=== PATIENT | female | born 1940 | race Caucasian/White ===

== ENCOUNTER 2016-12-15 06:33 | Day surgery (SDC) | payer OTHER ==
[2016-12-08 11:08] LABS: HEMATOCRIT 38.7 % (36.0-48.0); HEMOGLOBIN 12.8 g/dL (12.0-16.0)
[2016-12-08 11:21] LABS: BUN (BLOOD UREA NITROGEN) 22 MG/DL (6-23); CALCIUM, SERUM 9.6 MG/DL (8.5-10.4); CHLORIDE, SERUM 105 MMOL/L (96-112); CO2 (CARBON DIOXIDE) 26 MMOL/L (24-34); CREATININE 1.51 MG/DL (0.55-1.02); GFR AFRICAN AMERICAN 39 ML/MIN (>=60); GFR NON AFRICAN AMERICAN 33 ML/MIN (>=60); GLUCOSE, SERUM 93 MG/DL (60-99); SODIUM, SERUM 141 MMOL/L (135-148)
--- NOTE | ~2016-12-15 | OP ---
Record Of Operation [facility] [address] [place]. [address] NAME: CHRISTY VERDE : 42 STATUS : REG [facility]#: [id number] AGE: 76 ADM/REG DATE : 12/15/16 MR#: [id number] REPORT SERV DATE: 12/15/16 DICTATED BY: STEPHANIE MCCALLUM DATE: 12/15/16 REPORT STATUS : Draft TRANSCRIBED BY: MODL DATE: 12/15/16 DATE OF PROCEDURE: 12/15/2016 PREOPERATIVE DIAGNOSES: 1. Right UPJ obstruction. 2. Chronic kidney disease. Baseline creatinine 1.5. POSTOPERATIVE DIAGNOSES: 1. Right UPJ obstruction. 2. Chronic kidney disease. Baseline creatinine 1.5. PROCEDURES PERFORMED: 1. Cystoscopy with right retrograde pyelogram. 2. Balloon dilation of the right UPJ obstruction. 3. Right ureteral stent placement. SURGEON: Stephanie Mccallum M.D. ANESTHESIA: General. COMPLICATIONS: None. DRAINS: None. INDICATION: Ms Verde is a 76-year-old with chronic kidney disease and a right UPJ obstruction. The right kidney functions poorly, given her chronic kidney disease, she does not want nephrectomy performed. She has been offered pyeloplasty versus receptive balloon dilation, and stent placement. She presents for balloon dilation and stent placement on the right side. She will have a stent placed for two months postop. TECHNIQUE: Informed consent was obtained. She received Rocephin preop, brought to the operating room, general anesthesia was administered. Genitals and perineum were prepped and draped in the lithotomy position in a sterile fashion. Rigid cystoscopy was performed. The urethra was normal. There was a grade 1 to 2 cystocele, mild trabeculation of the bladder. No tumors or stones. Right retrograde pyelogram was performed. There was smooth right ureteral contour with no right ureteral filling defect. There was marked angulation at the UPJ with a jet visualized. There was severe right hydronephrosis. A 0.038 straight Glidewire was passed through the right UPJ. I removed the cystoscope and the Pollack catheter. Under fluoroscopic guidance, I dilated the right UPJ to 15-Armenian with a ureteral balloon dilator. There was no extravasation. After balloon dilation was performed, I placed a 26 cm 6-Armenian right ureter stent. The dangling string was removed. Coil was confirmed fluoroscopically in the renal pelvis and cystoscopically in the bladder. The bladder was drained. She will have the stent removed and a creatinine check in two months' time. Record Of Operation [facility] [address] [place]. [address] NAME: CHRISTY VERDE : 42 [place]US [place] [facility] [place] [id number] AGE: 76 ADM/REG DATE : 12/15/16 MR#: [id number] REPORT SERV DATE: 12/15/16 DICTATED BY: STEPHANIE MCCALLUM DATE: 12/15/16 REPORT STATUS : Draft TRANSCRIBED BY: KELL DATE: 12/15/16 [facility] Stephanie Mccallum M.D. / [id number] CC: [facility]
[~2016-12-15 06:33] MED LIST: CENTRUM PO; DIOVAN HC1 PO; ELIQUIS 5 MG TAB5 MG PO; FLAG500TAB PO; HYDROCHLOROT12.5 MG PO; L20 PO; LOP25 PO; MACROBID PO; MULTIVITAMI1 PO; NORCO1 TA1 PO; NORCO1 TAB PO; NORV10 PO; PACERONE200 MG PO; PRILO PO; PRIN20 PO; REST15 PO; ULORIC40 MG PO; VOLT75 PO; ZANAFLEX2 MG PO
== END 2016-12-15 16:37 | disposition home or self-care (01) ==
LOC: SDC 06:33
PROVIDERS: Urology
PROC: BT1DZZZ Fluoroscopy of Right Kidney, Ureter and Bladder (ICD-10-PCS; 2016-12-15)
PROC: 0T768DZ Dilation of Right Ureter with Intraluminal Device, Via Natural or Artificial Opening Endoscopic (ICD-10-PCS; principal; 2016-12-15 07:45)
DX: N13.5 Crossing vessel and stricture of ureter without hydronephrosis (principal); N18.9 Chronic kidney disease, unspecified; M19.90 Unspecified osteoarthritis, unspecified site; K21.9 Gastro-esophageal reflux disease without esophagitis; Z90.710 Acquired absence of both cervix and uterus; Z98.890 Other specified postprocedural states; Z96.1 Presence of intraocular lens; I10 Essential (primary) hypertension; I48.91 Unspecified atrial fibrillation
CPT/HCPCS: 74420; 80048; 85014; 85018; 93005; C1726; C1758; C1769; C2617; J2405; J2710; J3010; Q9967